=== PATIENT | female | born 1990 | race African-American/Black ===

== ENCOUNTER 2017-02-05 16:32 | Emergency (ER) | payer SELFPAY ==
[~2017-02-05] VITALS: Ht 154.9 cm; Wt 65.8 kg
[~2017-02-05 16:32] MED LIST: AZITTAB11 PO; IBUP800T24 PO
[2017-02-05 17:10] VITALS: BP 124/73
== END 2017-02-05 17:32 | disposition home or self-care (01) ==
LOC: ER 16:32
DX: J30.9 Allergic rhinitis, unspecified (principal)